=== PATIENT | female | born 1950 | race Caucasian/White ===

== ENCOUNTER → 2024-05-02 12:30 | Outpatient (REF) | payer MEDICARE, BC, SELFPAY | LOC: HWWDC 12:30 | PROVIDERS: ATTENDING PHYSICIAN Obstetrics & Gynecology; FAMILY PHYSICIAN Family Medicine | DX: Z12.31 Encounter for screening mammogram for malignant neoplasm of breast (principal) | CPT/HCPCS: 77063; 77067 ==

== ENCOUNTER → 2025-02-06 14:16 | Outpatient (REF) | payer MEDICARE, BC, SELFPAY | LOC: HWRAD 14:16 | PROVIDERS: ATTENDING PHYSICIAN Internal Medicine Rheumatology; FAMILY PHYSICIAN Family Medicine | DX: M81.0 Age-related osteoporosis without current pathological fracture (principal); Z13.820 Encounter for screening for osteoporosis | CPT/HCPCS: 77080 ==

== ENCOUNTER → 2025-02-21 15:49 | Outpatient (REF) | payer MEDICARE, BC, SELFPAY | LOC: HWRCS 15:49 | PROVIDERS: ATTENDING PHYSICIAN Internal Medicine; FAMILY PHYSICIAN Family Medicine | DX: I35.1 Nonrheumatic aortic (valve) insufficiency (principal); R60.9 Edema, unspecified; R06.09 Other forms of dyspnea | CPT/HCPCS: 93306 ==

== ENCOUNTER → 2025-05-03 12:12 | Outpatient (REF) | payer MEDICARE, BC, SELFPAY | LOC: HWWDC 12:12 | PROVIDERS: ATTENDING PHYSICIAN Family Medicine | DX: Z12.31 Encounter for screening mammogram for malignant neoplasm of breast (principal) | CPT/HCPCS: 77063; 77067 ==